=== PATIENT | male | born 1990 | race Caucasian/White ===

== ENCOUNTER 2019-01-03 18:42 | Emergency (ER) | payer SELFPAY ==
[2019-01-03] MEDS ORDERED: Lidocaine 1% (PF) 30 ML VIAL ONE (20:24)
[2019-01-03] MEDS ORDERED: Triple Antibiotic Oint 1 GM Packet ONE (20:43)
== END 2019-01-03 21:00 | disposition home or self-care (01) ==
LOC: ERS 18:42
DX: L60.0 Ingrowing nail (principal); J45.909 Unspecified asthma, uncomplicated; F32.9 Major depressive disorder, single episode, unspecified
CPT/HCPCS: 99283; J2001